=== PATIENT | female | born 1975 | race American Indian/Alaskan Native ===

== ENCOUNTER 2017-07-14 07:09 | Emergency (ER) | payer BC ==
--- NOTE | 2017-07-14 09:09 | Emergency Department Report ---
ED Fall HPI - General Chief Complaint: Fall Stated Complaint: BACK/KNEE/HEAD PAIN Time Seen by Provider: 07/14/17 09:09 Source: patient Mode of arrival: Ambulatory - History of Present Illness Initial Comments: Patient reports that she fell yesterday and she is complaining of body ache. She says she hit the back of her head on the concrete and also injured her knee and her lower back. She is having pain 8 out of 10 achy worse with movement better with rest. [id number] medication did not help. Denies any numbness or tingling to extremities. Denies any radiation of pain to her extremities. Denies any loss of bowel or bladder function. Denies any neck pain or stiffness. Pain is achy to her right knee, lower back and to the back of her head. Patient has a history of high blood pressure otherwise no other medical problems. She said she was seen by [facility] yesterday and the third officer after fall and she went home because they didn't see a need for her to go to the hospital. Patient said fall was accidental that she slipped and fell while walking. Denies alcohol use or intoxication at the time of incident MD Complaint: fall, other (low back pain, headache and) Onset/Timin -: days(s) Fall From: standing When Fall Occurred: # days DUST SAMPLER (1) Fall Witnessed: yes, by family Place Fall Occurred: other (outside) Loss of Consciousness: none Prolonged Down Time?: no Symptoms Prior to Fall: none Location: head, back Location - Extremities: Left: Knee (right knee pain and swelling) Severity scale (0 -10): 8 Quality: aching Context: tripped/slipped Associated Symptoms: headache, other (right knee pain and lower back pain). denies: neck pain, numbness, weakness, chest paint, shortness of breath, abdominal pain, hematuria, lightheaded, vertigo, confusion - Related Data Previous Rx's Medication Instructions Recorded Last Taken Type Acetaminophen/Codeine [Tylenol 1 tab PO Q6H PRN #12 tab 07/14/17 Unknown Rx /Codeine # 3 tab] Cyclobenzaprine [Flexeril] 10 mg PO TID PRN #12 tablet 07/14/17 Unknown Rx Ibuprofen [Motrin] 600 mg PO Q8H PRN #15 tablet 07/14/17 Unknown Rx Allergies Allergy/AdvReac Type Severity Reaction Status Date / Time No Known Allergies Allergy Unverified 07/14/17 07:19 ED Review of Systems ROS: Stated complaint: BACK/KNEE/HEAD PAIN Other details as noted in HPI Comment: All other systems reviewed and negative Constitutional: no symptoms reported Eyes: denies: eye pain, eye discharge, vision change Respiratory: no symptoms reported Cardiovascular: denies: chest pain, palpitations, dyspnea on exertion, orthopnea , edema, syncope, paroxysmal nocturnal dyspnea Gastrointestinal: denies: abdominal pain, nausea, vomiting, diarrhea Genitourinary: denies: dysuria, hematuria Musculoskeletal: back pain, joint swelling, arthralgia. denies: myalgia Skin: denies: rash Neurological: headache. denies: weakness, numbness, paresthesias, confusion, abnormal gait, vertigo ED Past Medical Hx - Past Medical History Previous Medical History?: Yes Hx Hypertension: Yes - Surgical History Past Surgical History?: Yes Additional Surgical History: right toe, Cyst removed from ovary(side unknown) - Family History Family history: hypertension - Social History Smoking Status: Never Smoker Substance Use Type: Alcohol, Non Opiate Pain, Prescribed - Medications Home Medications: Home Medications Medication Instructions Recorded Confirmed Last Taken Type Acetaminophen/Codeine [Tylenol 1 tab PO Q6H PRN #12 tab 07/14/17 Unknown Rx /Codeine # 3 tab] Cyclobenzaprine [Flexeril] 10 mg PO TID PRN #12 tablet 07/14/17 Unknown Rx Ibuprofen [Motrin] 600 mg PO Q8H PRN #15 tablet 07/14/17 Unknown Rx ED Physical Exam - General Limitations: No Limitations General appearance: alert, in no apparent distress - Head Head exam: Present: atraumatic, normocephalic, normal inspection - Expanded Head Exam Expanded Head exam: Absent: laceration, abrasion, contusion, hematoma, racoon eyes, mathew's sign, general tenderness, tenderness of temporal artery, CSF rhinorrhea , CSF otorrhea - Eye Eye exam: Present: normal appearance, PERRL, EOMI. Absent: nystagmus, periorbital swelling, periorbital tenderness Pupils: Present: normal accommodation - ENT ENT exam: Present: normal exam, normal orophraynx, mucous membranes moist, TM's normal bilaterally, normal external ear exam - Neck Neck exam: Present: normal inspection, full ROM, other (no C-spine tenderness, supple). Absent: tenderness, meningismus, lymphadenopathy, thyromegaly - Expanded Neck Exam Expanded Neck exam: Absent: tenderness, midline deformity, anterior neck swelling, thyroid mass, carotid bruit, tracheal deviation - Respiratory Respiratory exam: Present: normal lung sounds bilaterally. Absent: respiratory distress, chest wall tenderness - Cardiovascular Cardiovascular Exam: Present: regular rate, normal rhythm, bradycardia ( asymptomatic), normal heart sounds. Absent: systolic murmur, diastolic murmur - GI/Abdominal GI/Abdominal exam: Present: soft, normal bowel sounds. Absent: distended, tenderness, guarding, rebound, rigid, organomegaly, mass, bruit, pulsatile mass , hernia - Extremities Exam Extremities exam: Present: full ROM, tenderness (right knee), joint swelling ( minimal swelling to the anterior right knee), other (no clubbing, cyanosis or edema. +2 pulses all extremities and no neurovascular compromise.). Absent: normal inspection, normal capillary refill, pedal edema, calf tenderness - Expanded Lower Extremity Exam Right Hip exam: Present: normal inspection, full ROM, pelvic stability. Absent: tenderness, swelling, abrasion, laceration, ecchymosis, deformity, crepidus, dislocation, erythema, external rotation, internal rotation, shortening Upper Leg exam: Present: normal inspection, full ROM. Absent: tenderness, swelling, abrasion, laceration, ecchymosis, deformity, crepidus, dislocation, erythema Knee exam: Present: full ROM, tenderness (minimal tenderness to anterior right knee), swelling (minimal swelling to the anterior right knee), full knee extension. Absent: normal inspection, abrasion, laceration, ecchymosis, deformity, crepidus, dislocation, erythema, effusion, pain w/ pronation/ supination, posterior draw sign, pain/laxity with valgus, pain/laxity with varus Lower Leg exam: Present: normal inspection, full ROM. Absent: tenderness, swelling, abrasion, laceration, ecchymosis, deformity, crepidus, dislocation, erythema, palpable cord, Libertad's sign Ankle exam: Present: normal inspection, full ROM. Absent: tenderness, swelling , abrasion, laceration, ecchymosis, deformity, crepidus, dislocation, erythema Foot/Toe exam: Present: normal inspection, full ROM. Absent: tenderness, swelling, abrasion, laceration, ecchymosis, deformity, crepidus, dislocation, erythema, amputation, puncture wound, foreign body, calcaneal tenderness, tenderness at base of 5th metatarsal, nail avulsion, subungual hematoma Neuro vascular tendon exam: Present: no vascular compromise. Absent: pulse deficit, abnormal cap refill, motor deficit, sensory deficit, tendon deficit, extremity cold to touch, pallor, abnormal 2-point discrimination, decreased fine /light touch, foot drop, peroneal nerve deficit, significant pain with passive ROM of distal joint Gait: Positive: observed and limited by pain - Back Exam Back exam: Present: normal inspection, full ROM, vertebral tenderness (lumbar), other (ambulates without any difficulties). Absent: tenderness, CVA tenderness (R), CVA tenderness (L), muscle spasm, paraspinal tenderness, rash noted - Expanded Back Exam Expanded Back exam: Absent: saddle anesthesia Back exam: Negative Straight Leg Raising: Left, Right ED Course Vital Signs 07/14/17 07/14/17 07:19 10:56 Temperature 98.3 F Pulse Rate 57 L 55 L Respiratory 18 Rate Blood Pressure 152/96 151/94 O2 Sat by Pulse 100 100 Oximetry - Orthopedic Splinting/Casting Injury #1 Side: right Lower Extremity Injury Location: knee Lower Extremity Immobilizer: Luisito wrap Additional Comments: Good color, sensation movement in temperature to extremities. ED Medical Decision Making - Radiology Data Radiology results: report reviewed CT scan of the brain and head without contrast revealed no acute findings. CT scan of the lumbar spine reveals mild stranding changes with disc bulge at L4 to 5 and L5 to S1. No significant neuro for minimal narrowing or central canal spinal stenosis. No fracture X-ray of right knee reveals degenerative changes medial and patellofemoral compartment knee joint. Sclerotic articular surfaces with osteophytes suggested degenerative changes been most pronounced in the patellofemoral compartment. No fractures. No soft tissue calcification or joint effusion. - Medical Decision Making ED course: Patient here reports that she had a fall yesterday and hit the back of her head, injured her right knee and lower back. Physical findings for normal neurological exam, right knee tender to palpate anteriorly with mild swelling and no restriction in movement. Lumbar spine with vertebral tenderness and no parasipinal tenderness otherwise back exam is normal. Patient ambulated without any difficulties. She had CT scan of the head brain without contrast that showed no acute abnormality. Patient had CT scan of lumbar spine and it shows that she has mild degenerative changes with disc bulge at L4 to 5 and L5 to S1 without any acute fracture or subluxation. X-ray of right knee reveal patient with degenerative changes medially and Patellofemoral compartment knee joint be more pronounced at the patellofemoral compartment. CT scan and x-ray result was reports patient. test is also negative and she was informed. Patient given Motrin [address] scan results for generalized pain. He is referred to procedure note for splinting on right knee. The patient if she continues to have pain she needs to follow- up with her primary care physician or orthopedic doctor. She does have a primary care physician. Patient will be referred to Dr. Alfaro orthopedic doctor. She was discharged home with prescription of Tylenol No. 3 Critical care attestation.: If time is entered above; I have spent that time in minutes in the direct care of this critically ill patient, excluding procedure time. ED Disposition Clinical Impression: Lumbar and sacral osteoarthritis, Bulging of lumbar intervertebral disc without myelopathy, Fall from ground level, Right anterior knee pain, Minor closed head injury Osteoarthritis Qualifiers: Osteoarthritis location: knee Osteoarthritis type: unspecified Laterality: right Qualified Code(s): M17.11 - Unilateral primary osteoarthritis, right knee Post-traumatic headache, not intractable Qualifiers: Headache chronicity pattern: acute headache Qualified Code(s): G44.319 - Acute post-traumatic headache, not intractable Pain in lower back Qualifiers: Chronicity: acute Back pain laterality: midline Sciatica presence: without sciatica Qualified Code(s): M54.5 - Low back pain Disposition: DC-01 TO HOME OR SELFCARE Is pt being admited?: No Does the pt Need Aspirin: No Condition: Stable Instructions: Arthralgia (ED), Degenerative Disc Disease (ED), Osteoarthritis ( ED), Back Pain (ED), Acute Headache (ED), Knee Pain (ED), Knee Exercises (GEN), RICE Therapy (ED), Minor Head Injury (ED) Additional Instructions: Please follow up with primary care and orthopedic doctor as recommended Increase fluid intake Take medication as prescribed but please do not drive or operate heavy machinery while taking Tylenol or Flexeril as these medication causes drowsiness . Referred to discharge instruction on splint care. Referred to discharge instruction in Rice therapy. Please refer to discharge instruction on minor head injury . Prescriptions: Acetaminophen/Codeine [Tylenol /Codeine # 3 tab] 1 tab PO Q6H PRN #12 tab PRN Reason: moderate to severe pain Cyclobenzaprine [Flexeril] 10 mg PO TID PRN #12 tablet PRN Reason: Muscle Spasm Ibuprofen [Motrin] 600 mg PO Q8H PRN #15 tablet PRN Reason: Pain Referrals: PRIMARY CARE, [Primary Care Provider] - 2-3 Days ELIEZER ALFARO MD [Staff Physician] - 07/17/17 Forms: Work/School Release Form(ED)
--- NOTE | 2017-07-14 10:39 | Cat Scan Report ---
CT scan of head without IV contrast: History: Fall with head injury. Pain occipital region. Findings: Ventricles are normal in size and midline in location. No evidence of acute ischemic, hemorrhage or mass. No extra-axial fluid collection. Normal brainstem and cerebellum. Normal sinuses and mastoid air cells. Impression: No acute intracranial abnormality.
--- NOTE | 2017-07-14 10:44 | Cat Scan Report ---
CT scan of the lumbar spine: Next History: Fall with lower back pain. Findings: Normal height of vertebral bodies and intervertebral disc. Articular surfaces are mildly sclerotic and may represent early degenerative change. There is no protrusion or extrusion or sequestration of disc. No significant neuroforaminal narrowing. Disc bulge is noted at the level of L4-L5 and L5-S1. Impression: Mild degenerative changes with disc bulge at L4-5 and L5-S1. No significant neuroforaminal narrowing or central canal spinal stenosis. No acute fracture.
--- NOTE | 2017-07-14 10:45 | XRay Report ---
Right knee 2 views: History: Fall with right knee pain and swelling. Findings: Minimal narrowing of medial and patellofemoral compartment knee joint. Sclerotic articular surfaces with osteophyte suggesting degenerative changes being most pronounced in the patellofemoral compartment. No fracture. No soft tissue calcification or joint effusion. Impression: Degenerative changes medial and patellofemoral compartment knee joint being more pronounced at the patellofemoral compartment.
[2017-07-14 11:01] VITALS: BP 151/94
[2017-07-14] MEDS ORDERED: MOTRIN PO ONE (11:34)
== END 2017-07-14 12:29 | disposition home or self-care (01) ==
LOC: ED 07:09
DX: M47.898 Other spondylosis, sacral and sacrococcygeal region (principal); G44.309 Post-traumatic headache, unspecified, not intractable; M25.561 Pain in right knee; S09.90XA Unspecified injury of head, initial encounter; I10 Essential (primary) hypertension; W01.0XXA Fall on same level from slipping, tripping and stumbling without subsequent striking against object, initial encounter; Y93.89 Activity, other specified; Y92.89 Other specified places as the place of occurrence of the external cause; Y99.8 Other external cause status
CPT/HCPCS: 36415; 70450; 72131; 84703; 99284

== ENCOUNTER → 2019-04-09 | Emergency (ER) | payer BC ==
[2019-04-09 14:41] VITALS: BP 120/77
--- NOTE | 2019-04-09 14:44 | Event Note ---
ED Screening Note Date of service: 04/09/19 Time: 14:42 ED Screening Note: 43 y/o female comes in for elevated blood pressure and light headedness. and change of vision times 2 days. This initial assessment/diagnostic orders/clinical plan/treatment(s) is/are subject to change based on patients health status, clinical progression and re- assessment by fellow clinical providers in the ED. Further treatment and workup at subsequent clinical providers discretion. Patient/guardian urged not to elope from the ED as their condition may be serious if not clinically assessed and managed. Initial orders include:
== END ==
LOC: ED 14:18
DX: R11.0 Nausea (principal); R42 Dizziness and giddiness; Z53.21 Procedure and treatment not carried out due to patient leaving prior to being seen by health care provider

== ENCOUNTER 2020-03-17 20:32 | Emergency (ER) | payer BC ==
--- NOTE | 2020-03-17 20:56 | Emergency Department Report ---
Blank Doc - Documentation Documentation: 44-year-old female that presents with nausea vomiting and dental swelling. This initial assessment/diagnostic orders/clinical plan/treatment(s) is/are subject to change based on patient's health status, clinical progression and re- assessment by fellow clinical providers in the ED. Further treatment and workup at subsequent clinical providers discretion. Patient/guardians urged not to elope from the ED as their condition may be serious if not clinically assessed and managed. Initial orders include: 1- Patient sent to [facility] for further evaluation and treatment 2- labs 3- UA
[2020-03-17 20:59] VITALS: BP 151/97
[2020-03-17] MEDS ORDERED: ONDANSETRON 4 MG ODT TAB PO ONE (21:30)
[2020-03-17 21:33] LABS: Alanine Aminotransferase 15 units/L (7-56); Albumin 4.4 g/dL (3.9-5); BUN/Creatinine Ratio 12; Blood Urea Nitrogen 11 mg/dL (7-17); Calcium 10.1 mg/dL (8.4-10.2); Hemolysis Index 140
--- NOTE | 2020-03-17 21:36 | Emergency Department Report ---
ED General Adult HPI - General Chief complaint: Nausea/Vomiting/Diarrhea Stated complaint: VOMITING NAUSEA ABCESS ON GUMS Time Seen by Provider: 03/17/20 20:54 Source: patient Mode of arrival: Ambulatory Limitations: No Limitations - History of Present Illness Initial comments: The patient was evaluated in the emergency department for symptoms described in the history of present illness. He/she was evaluated in the context of the global COVID-19 pandemic, which necessitated consideration that the patient might be at risk for infection with the virus that causes COVID-19. Institutional protocols and algorithms that pertain to the evaluation of pa tients at risk for COVID-19 are in a state of rapid change based on information released by regulatory bodies including the CDC and federal and state organizations. These policies and algorithms were followed during the patient's care in the emergency department. Please note that these policies, procedures and recommendations changed on a rapid basis. 44-year-old -[place] female presents to the emergency room stating that she has been vomiting since this morning after taking tramadol and extra strength Tylenol on an empty stomach. Patient states she is currently being treated for a dental abscess and had a root canal yesterday. Patient states that she has no abdominal pain just nausea vomiting and left-sided facial pain. Patient reports she has been taking amoxicillin and after her treatment she was placed on clindamycin. Patient reports a history of hypertension. Patient states that she still nauseated. Last menstrual period was 03/10/2020. -: This morning Consistency: intermittent Improves with: none Worsens with: eating Associated Symptoms: nausea/vomiting. denies: diaphoresis, fever/chills, loss of appetite Treatments Prior to Arrival: none - Related Data Previous Rx's Medication Instructions Recorded Last Taken Type Acetaminophen/Codeine [Tylenol 1 tab PO Q6H PRN #12 tab 07/14/17 Unknown Rx /Codeine # 3 tab] Cyclobenzaprine [Flexeril] 10 mg PO TID PRN #12 tablet 07/14/17 Unknown Rx Ibuprofen [Motrin] 600 mg PO Q8H PRN #15 tablet 07/14/17 Unknown Rx Ondansetron [Zofran Odt] 4 mg PO Q8HR #12 tab.rapdis 03/17/20 Unknown Rx Allergies Allergy/AdvReac Type Severity Reaction Status Date / Time No Known Allergies Allergy Verified 04/09/19 14:21 ED Review of Systems ROS: Stated complaint: VOMITING NAUSEA ABCESS ON GUMS Other details as noted in HPI Comment: All other systems reviewed and negative ED Past Medical Hx - Past Medical History Previous Medical History?: Yes Hx Hypertension: Yes - Surgical History Past Surgical History?: Yes Additional Surgical History: right toe, Cyst removed from ovary(side unknown) - Social History Smoking Status: Never Smoker Substance Use Type: None - Medications Home Medications: Home Medications Medication Instructions Recorded Confirmed Last Taken Type Acetaminophen/Codeine [Tylenol 1 tab PO Q6H PRN #12 tab 07/14/17 Unknown Rx /Codeine # 3 tab] Cyclobenzaprine [Flexeril] 10 mg PO TID PRN #12 tablet 07/14/17 Unknown Rx Ibuprofen [Motrin] 600 mg PO Q8H PRN #15 tablet 07/14/17 Unknown Rx Ondansetron [Zofran Odt] 4 mg PO Q8HR #12 tab.rapdis 03/17/20 Unknown Rx ED Physical Exam - General Limitations: No Limitations General appearance: alert, in no apparent distress - Head Head exam: Present: atraumatic, normocephalic - Eye Eye exam: Present: normal appearance - ENT ENT exam: Present: mucous membranes moist, other (Mild left side facial swelling) - Expanded ENT Exam Expanded Teeth exam: Absent: gingival enlargement - Neck Neck exam: Present: normal inspection, full ROM - Respiratory Respiratory exam: Present: normal lung sounds bilaterally. Absent: chest wall tenderness, accessory muscle use - Cardiovascular Cardiovascular Exam: Present: regular rate, normal rhythm. Absent: systolic murmur, diastolic murmur, rubs, gallop - GI/Abdominal GI/Abdominal exam: Present: soft, normal bowel sounds. Absent: distended, tenderness - Back Exam Back exam: Present: normal inspection - Neurological Exam Neurological exam: Present: alert, oriented X3, normal gait - Psychiatric Psychiatric exam: Present: normal affect, normal mood - Skin Skin exam: Present: warm, dry, intact, normal color. Absent: rash ED Course Vital Signs 03/17/20 20:56 Temperature 98.5 F Pulse Rate 69 Respiratory 18 Rate Blood Pressure 151/97 O2 Sat by Pulse 100 Oximetry - Reevaluation(s) Reevaluation #1: 03/17/20 23:03 P.o. challenge been successful. Patient states she feels much better. ED Medical Decision Making - Lab Data Result diagrams: 03/17/20 20:55 03/17/20 20:55 - Medical Decision Making 44-year-old -[place] female presents to the emergency room stating that she has been vomiting since this morning after taking tramadol and extra strength Tylenol on an empty stomach. Patient states she is currently being treated for a dental abscess and had a root canal yesterday. Patient states that she has no abdominal pain just nausea vomiting and left-sided facial pain. Patient reports she has been taking amoxicillin and after her treatment she was placed on clindamycin. Patient reports a history of hypertension. Patient states that she still nauseated. Last menstrual period was 03/10/2020. Patient is given Zofran will wait 30 minutes to start a p.o. challenge. Critical care attestation.: If time is entered above; I have spent that time in minutes in the direct care of this critically ill patient, excluding procedure time. ED Disposition Clinical Impression: Nausea and vomiting in adult Disposition: DC-01 TO HOME OR SELFCARE Is pt being admited?: No Does the pt Need Aspirin: No Condition: Stable Instructions: Nausea and Vomiting, Adult, Cyot-if-[id number] Additional Instructions: Take Zofran as needed for nausea and vomiting. Continue with your medications as prescribed. Do not take the tramadol continue with the Tylenol. Follow-up with your dentist. Prescriptions: Ondansetron [Zofran Odt] 4 mg PO Q8HR #12 tab.rapdis Referrals: KYLIE SIMENTAL MD [Primary Care Provider] - 3-5 Days Forms: Work/School Release Form(ED)
[2020-03-17 21:48] LABS: Basophils # (Auto) 0.1 K/mm3 (0.0-0.1); Basophils % (Auto) 0.7 % (0.0-1.8); Hematocrit 44.9 % (30.3-42.9); Hemoglobin 14.7 gm/dl (10.1-14.3); Lymphocytes # (Auto) 1.3 K/mm3 (1.2-5.4); Lymphocytes % (Auto) 10.4 % (13.4-35.0); Mean Corpuscular HGB Conc 33 % (30-34); Mean Corpuscular Volume 87 fl (79-97); Monocytes # (Auto) 0.5 K/mm3 (0.0-0.8); Monocytes % (Auto) 4.2 % (0.0-7.3); Platelet Count 267 K/mm3 (140-440); Red Blood Count 5.18 M/mm3 (3.65-5.03); Red Cell Distribution Width 15.3 % (13.2-15.2)
[2020-03-17 22:01] LABS: Bilirubin,Urine NEG (Negative); Blood,Urine NEG (Negative); Color,Urine Yellow (Yellow); Protein,Urine <15 mg/dL mg/dL (Negative); RBC,Urine < 1.0 /HPF (0.0-6.0); Urobilinogen,Urine < 2.0 mg/dL (<2.0)
== END 2020-03-17 23:20 | disposition home or self-care (01) ==
LOC: ED 20:32
DX: R11.2 Nausea with vomiting, unspecified (principal); I10 Essential (primary) hypertension; Z98.890 Other specified postprocedural states; Z79.1 Long term (current) use of non-steroidal anti-inflammatories (NSAID); Z79.899 Other long term (current) drug therapy
CPT/HCPCS: 36415; 80053; 81001; 83690; 84703; 85025; Q0162